=== PATIENT | male | born 1960 ===

== ENCOUNTER 2022-05-28 09:13 | Outpatient (CLI) | payer OTHER | END 2022-05-28 09:14 | disposition home or self-care (01) | LOC: DI 09:13 | PROVIDERS: ATTEND Internal Medicine | DX: I44.7 Left bundle-branch block, unspecified (principal); R00.1 Bradycardia, unspecified; I51.7 Cardiomegaly; I77.810 Thoracic aortic ectasia | CPT/HCPCS: 93306 ==

== ENCOUNTER 2023-07-25 14:52 | Emergency (ER) | payer OTHER ==
[2023-07-25 15:02] VITALS: O2SAT 100
--- NOTE | 2023-07-25 15:44 | ED Physician Documentation ---
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 This morning he has coughed and coughed up some blood-tinged saliva. He has a family history of throat cancer and he has come into the emergency department for evaluation today. Review of Systems Constitutional: reports: Myalgias. denies: Fever, Chills Eyes: denies: Decreased vision Ears: denies: Ear pain Nose: reports: Congestion. denies: Rhinorrhea / runny nose Throat: reports: Sore throat. denies: Dental pain / toothache, Oral lesions / sores Cardiac: denies: Chest pain / pressure, Palpitations Respiratory: reports: Cough. denies: Dyspnea GI: denies: Abdominal Pain, Nausea, Vomiting, Constipation, Diarrhea : denies: Dysuria, Frequency PD PAST MEDICAL HISTORY - Past Medical History Past Medical History: No - Past Surgical History Past Surgical History: Yes Ortho: Shoulder arthroplasty - Present Medications Home Medications: Ambulatory Orders Medication Instructions Recorded Confirmed HYDROcod/ACETAM 5/325 [Sal[place] 5/325] 1 - 2 tablet PO Q6H PRN 07/25/23 07/25/23 - Allergies Allergies/Adverse Reactions: Allergies Allergy/AdvReac Type Severity Reaction Status Date / Time No Known Drug Allergies Allergy Verified 07/25/23 14:57 - Social History Does the pt smoke?: No Smoking Status: Never smoker Does the pt drink ETOH?: No Does the pt have substance abuse?: No - Immunizations Immunizations are current?: Yes - POLST Patient has POLST: No PD ED PE NORMAL - Vitals Vital signs reviewed: Yes (normal ) - General General: Alert and oriented X 3, No acute distress, Well developed/nourished - HEENT HEENT: Atraumatic, PERRL, EOMI, Other (The uvula is swollen and there is a central ulceration. There is evidence of recent bleeding. 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 He does appear to have viral pharyngitis and we have given him a dose of dexamethasone with expectation of reduction in the swelling of the uvula and we are expecting resolution of his symptoms within the week as he has already been ill for about 3 days. He does have some id symptoms with pain in his right ankle. Departure - Departure Disposition: 01 Home, Self Care Clinical Impression: Acute viral pharyngitis Condition: Stable Instructions: ED Pharyngitis Viral Follow-Up: Severiano Richmond MD [Primary Care Provider] - Comments: Brody, today it looks like you have an ulceration to your uvula and it also appears slightly swollen and red. This is a typical appearance of the uvula with viral upper respiratory tract infection. You have been sick for about 3 days now and our expectation is resolution within the end of the week. Today we have given you a dose of dexamethasone and this should help with the swelling in your uvula over the next 2 hours and last for about 2 days. If you do not have resolution of your symptoms as we have outlined a follow-up with Dr. Richmond is in order.
[2023-07-25] MEDS: DEXAMETHASONE 10 MG/ML VIAL PO STA (15:45)
[2023-07-25] MEDS: CHERRY SYRUP 10 ML UDC PO ONE (15:45)
[2023-07-25 15:56] VITALS: BP 137/96
== END 2023-07-25 15:53 | disposition home or self-care (01) ==
LOC: ED 14:52
DX: J02.9 Acute pharyngitis, unspecified (principal)
CPT/HCPCS: 99283; A9270